=== PATIENT | male | born 1965 | race Two or more races ===

== ENCOUNTER → 2019-01-18 | Outpatient (CLI) | payer OTHER | END | disposition home or self-care (01) | LOC: RAD 501 14:59 | DX: M54.5 Low back pain (principal) ==

== ENCOUNTER 2021-11-05 09:00 | Outpatient (CLI) | payer OTHER | END 2021-11-05 09:30 | disposition home or self-care (01) | LOC: PPH VACUNA 09:00 | PROVIDERS: ATTEND Emergency Medicine Pediatric Emergency Medicine | DX: Z23 Encounter for immunization (principal) ==

== ENCOUNTER 2023-01-28 10:17 | Outpatient (CLI) | payer OTHER | END 2023-01-28 10:35 | disposition home or self-care (01) | LOC: SONOGRAMA 10:17 | PROVIDERS: ATTEND Urology | DX: I86.0 Sublingual varices (principal) ==

== ENCOUNTER → 2023-02-11 | Outpatient (CLI) | payer OTHER | END | disposition home or self-care (01) | LOC: RAD 16:06 | PROVIDERS: ATTEND Internal Medicine | DX: J44.1 Chronic obstructive pulmonary disease with (acute) exacerbation (principal) ==

== ENCOUNTER 2025-09-26 14:36 | Outpatient (CLI) | payer OTHER | END 2025-09-26 14:48 | disposition home or self-care (01) | LOC: SONOGRAMA 14:36 | PROVIDERS: ATTEND Urology | DX: R33.9 Retention of urine, unspecified (principal); N40.0 Benign prostatic hyperplasia without lower urinary tract symptoms ==